=== PATIENT | male | born 1960 | race African-American/Black ===

== ENCOUNTER 2023-03-16 19:24 | Emergency (ER) | payer MEDICARE, BC ==
[~2023-03-16] VITALS: Ht 175.3 cm; Wt 107.9 kg
[2023-03-16 19:39] VITALS: BP 177/100; PULSE 114; RESP 14; TEMP 98.3; O2SAT 99
[2023-03-16 21:00] LABS: ALANINE AMINOTRANSFERASE 19 IU/L (10-49); ALBUMIN 4.3 g/dL (3.2-4.8); ASPARTATE AMINOTRANSFERASE 17 IU/L (<34); BILIRUBIN TOTAL 0.3 mg/dL (0.1-1.0); CALCIUM 9.6 mg/dL (8.7-10.4); CARBON DIOXIDE 28 mEq/L (21-32); CHLORIDE 103 mEq/L (98-107); GLUCOSE 188 mg/dL (70-105); POTASSIUM 3.9 mEq/L (3.5-5.1); SODIUM 137 mEq/L (136-145); UREA NITROGEN BLOOD 10 mg/dL (9-23)
[2023-03-16 21:01] LABS: BASOPHILS % 0.8 % (0.0-2.0); EOSINOPHILS % 3.8 % (0.0-5.0); HEMATOCRIT. 38.8 % (42.0-52.0); HEMOGLOBIN. 12.9 g/dL (14.0-18.0); LYMPHOCYTES % 49.4 % (20.0-50.0); MEAN CORPUSCULAR HEMOGLOBIN 30.3 pg (28.0-32.0); MEAN CORPUSCULAR HGB CONC 33.4 g/dL (31.0-37.0); MEAN CORPUSCULAR VOLUME 90.9 fL (80.0-94.0); MEAN PLATELET VOLUME 8.8 fl (7.4-10.4); MONOCYTES % 9.1 % (2.0-8.0); NEUTROPHILS % 36.9 % (40.0-76.0); PLATELET 256 x1000/uL (130-400); RED BLOOD CELL COUNT 4.27 mill/uL (4.7-6.1); RED CELL DISTRIBUTION WIDTH 13.6 % (11.6-14.6); WHITE BLOOD COUNT 6.3 x1000/uL (4.5-11.0)
[2023-03-16 21:11] LABS: PARTIAL THROMBOPLASTIN TIME 30.9 sec (23.4-31.0)
== END 2023-03-17 03:52 | disposition left against medical advice (07) ==
LOC: ER 19:24
DX: I10 Essential (primary) hypertension (principal); Z53.21 Procedure and treatment not carried out due to patient leaving prior to being seen by health care provider
CPT/HCPCS: 36415; 71045; 80053; 85025; 93005; 99281

== ENCOUNTER 2024-09-26 03:01 | Inpatient (IN) | payer MEDICARE, MEDICAID ==
[~2024-09-26] VITALS: Ht 180.3 cm; Wt 120.3 kg
[2024-09-26] VITALS (83 sets, daily range): BP systolic 70–136; BP diastolic 44–106; PULSE 63–94; RESP 14–31; TEMP 34.6944–37.2; O2SAT 97–100
[2024-09-26] MEDS ORDERED: ACETAMINOPHEN 1000MG/100ML 100 ML IV ONE (03:30)
[2024-09-26] MEDS: SODIUM CHLORIDE 0.9% (SEPSIS BOLUS) IV ONE (03:49)
[2024-09-26 04:31] LABS: BASOPHILS % 0.2 % (0.0-2.0); EOSINOPHILS % 0.5 % (0.0-5.0); HEMATOCRIT. 35.7 % (42.0-52.0); HEMOGLOBIN. 12.2 g/dL (14.0-18.0); LYMPHOCYTES % 10.0 % (20.0-50.0); MEAN PLATELET VOLUME 9.0 fl (7.4-10.4); MONOCYTES % 0.5 % (2.0-8.0); NEUTROPHILS % 88.8 % (40.0-76.0); PLATELET 128 x1000/uL (130-400); RED BLOOD CELL COUNT 4.04 mill/uL (4.7-6.1); RED CELL DISTRIBUTION WIDTH 16.4 % (11.6-14.6)
[2024-09-26 04:46] LABS: CREATININE 1.3 mg/dL (0.6-1.3)
[2024-09-26 04:47] LABS: ETHANOL BLOOD < 10 mg/dL (<10); UREA NITROGEN BLOOD 17 mg/dL (9-23)
[2024-09-26 04:48] LABS: ASPARTATE AMINOTRANSFERASE 19 IU/L (<34)
[2024-09-26 04:49] LABS: BILIRUBIN DIRECT 0.5 mg/dL (<=3.0); BILIRUBIN TOTAL 1.1 mg/dL (0.1-1.0); PROTEIN TOTAL 7.0 g/dL (6.0-8.3)
[2024-09-26] MEDS: PIPERACILLIN/TAZO 3.375G/50ML 50 ML IV NR (04:51)
[2024-09-26 04:59] LABS: TROPONIN I HIGH SENSITIVITY < 4 ng/L (3.0-53)
[2024-09-26] MEDS: ACETAMINOPHEN 325MG TABLET PO ONE (05:12)
[2024-09-26] MEDS: VANCOMYCIN 1G PREMIX 200 ML IV NR (05:17)
[2024-09-26 06:24] LABS: CLARITY URINE CLEAR (CLEAR); COLOR URINE YELLOW (YELLOW); GLUCOSE URINE NEGATIVE (NEGATIVE); KETONES URINE NEGATIVE (NEGATIVE); LEUKOCYTE ESTERASE URINE 2+ (NEGATIVE); NITRITE URINE NEGATIVE (NEGATIVE); OCCULT BLOOD URINE 2+ (NEGATIVE); PH URINE 7.5 (4.5-8.0); PROTEIN URINE 1+ (NEGATIVE); SPECIFIC GRAVITY URINE 1.013 (1.005-1.030); UROBILINOGEN URINE 0.2 E.U./dL (0.2-1.0)
[2024-09-26 06:48] LABS: INR 1.2
[2024-09-26 06:50] LABS: *AMPHETAMINES SCREEN URINE NEGATIVE (NEGATIVE); *BARBITURATES SCREEN URINE NEGATIVE (NEGATIVE); *BENZODIAZEPINES SCREEN URINE NEGATIVE (NEGATIVE); *COCAINE SCREEN URINE NEGATIVE (NEGATIVE); CANNABINOID URINE SCREEN NEGATIVE (NEGATIVE); ECSTASY MDMA SCREEN URINE NEGATIVE (NEGATIVE); METHADONE URINE SCREEN NEGATIVE (NEGATIVE); OPIATES URINE SCREEN NEGATIVE (NEGATIVE); PHENCYCLIDINE URINE SCREEN NEGATIVE (NEGATIVE)
[2024-09-26] MEDS: IPRATROPIUM/ALBUTEROL 0.5-3(2.5)MG/3ML NEB HHN SCH ×2 (07:42→12:00)
[2024-09-26] MEDS: PHENYLEPHRINE 50MG/250ML PMX 250 ML IV PRN (08:51)
[2024-09-26] MEDS ORDERED: ENOXAPARIN 100MG/ML SYR SUBCUT SCH (09:00)
[2024-09-26] MEDS: PROPOFOL 10MG/ML 100ML 100 ML IV PRN (09:04)
[2024-09-26 09:06] LABS: SQUAMOUS EPITHELIAL CELL URINE FEW /lpf (RARE/1+)
[2024-09-26 09:09] LABS: BACTERIA URINE 2+
[2024-09-26 09:10] LABS: HYALINE CASTS URINE 0-5 /lpf
[2024-09-26 09:14] LABS: RBC URINE 50-100 /hpf (0-2); WBC URINE 50-100 /hpf (0-2)
[2024-09-26] MEDS ORDERED: DOCUSATE SODIUM 100MG CAPSULE PO PRN (09:15)
[2024-09-26] MEDS ORDERED: MAGNESIUM/ALUMINUM HYDROXIDE/SIMETHICONE 30ML UDC PO PRN (09:15)
[2024-09-26] MEDS ORDERED: ONDANSETRON HCL 4MG/2ML INJ IV PRN (09:15)
[2024-09-26] MEDS ORDERED: ACETAMINOPHEN 325MG TABLET PO PRN (09:15)
[2024-09-26 10:55] LABS: BG BASE EXCESS -3.6 mmol/L (-2.0-3.0); BG CARBOXYHEMOGLOBIN 0.7 % (0.5-1.5); BG DEOXYHEMOGLOBIN 3.4 % (0.0-5.0); BG FRACTION INSPIRED OXYGEN 100; BG HCO3 ACT 19.5 mmol/L (21.0-28.0); BG METHEMOGLOBIN 0.0 % (0.5-1.5); BG OXYGEN SATURATION 96.6 % (94.0-98.0); BG OXYHEMOGLOBIN 95.9 % (94.0-98.0); BG PCO2 29.5 mmHg (35.0-48.0); BG PEEP (cmH2O) 8.0 cmH2O; BG PH 7.439 (7.350-7.450); BG PO2 87.4 mmHg (83.0-108.0); BG SAMPLE SITE RIGHT RADIAL; BG TIDAL VOLUME(mL) 500.0 mL; BG TOTAL HEMOGLOBIN 11.9 g/dL (13.5-17.5); BG VENT MODE VENT - AC; BG VENT RATE 18.0 set
[2024-09-26] MEDS ORDERED: DEXTROSE 50% WATER 50ML SYRINGE IV PRN (11:00)
[2024-09-26 11:01] LABS: TROPONIN I HIGH SENSITIVITY 13 ng/L (3.0-53)
[2024-09-26] MEDS: NOREPINEPHRINE 8MG/250ML PMX 250 ML IV PRN (11:03)
[2024-09-26 11:16] LABS: LDL CHOLESTEROL 31.0 mg/dL (5-100); TRIGLYCERIDE 66.0 mg/dL (0-150)
[2024-09-26 11:21] LABS: T4 FREE 1.04 ng/dL (0.89-1.76)
[2024-09-26] MEDS: FUROSEMIDE 40MG/4ML VIAL IVP SCH (11:25)
[2024-09-26] MEDS: METHYLPREDNISOLONE SOD SUCC 125MG/2ML (ACT-O-VIAL) IV SCH (11:26)
[2024-09-26] MEDS: INSULIN LISPRO 100 UNITS/ML SUBCUT SCH (12:00)
[2024-09-26 12:12] LABS: FOLIC ACID (FOLATE) SERUM > 20.00 ng/mL (>5.38); VITAMIN B12 SERUM 428 pg/mL (211-911)
[2024-09-26] MEDS: BLOOD SUGAR DIAGNOSTIC STRIP TEST SCH (12:29)
[2024-09-26 12:39] LABS: PHOSPHORUS 2.3 mg/dL (2.5-4.9)
[2024-09-26] MEDS ORDERED: ETOMIDATE 2MG/ML 10ML VIAL IV ONE (13:21)
[2024-09-26] MEDS: PIPERACILLIN/TAZO 3.375G/50ML 50 ML IV SCH (13:46)
[2024-09-26] MEDS: ASPIRIN 81MG TABLET PO SCH (13:46)
[2024-09-26 14:17] LABS: INFLUENZA TYPE A Presumptive Negative (Pres. Neg.); INFLUENZA TYPE B Presumptive Negative (Pres. Neg.)
[2024-09-26 14:18] LABS: RESPIRATORY SYNCYTIAL VIRUS Not Detected (Not Detectd)
[2024-09-26] MEDS: NOREPINEPHRINE 32 MG in DEXT 5% WATER 218 ML IV PRN (14:44)
[2024-09-26] MEDS: PHENYLEPHRINE 100 MG in DEXT 5% WATER 240 ML IV PRN (14:45)
[2024-09-26] MEDS: VANCOMYCIN 1.25GM/250ML IV SCH (15:26)
[2024-09-26 15:43] LABS: CREATINE KINASE MB FRACTION 2.3 ng/mL (0.5-3.6)
[2024-09-26 15:44] LABS: TROPONIN I HIGH SENSITIVITY 22.0 ng/L (3.0-53)
[2024-09-26] MEDS: METHYLPREDNISOLONE SOD SUCC 40MG/ML (ACT-O-VIAL) IV SCH (16:58)
[2024-09-26] MEDS: IOHEXOL-350 100 ML BOTTLE ONE ×2 (16:59→23:25)
[2024-09-26] MEDS: LIDOCAINE HCL 1% 10 MG/ML 10ML VIAL ONE (16:59)
[2024-09-26] MEDS: MAGNESIUM 2 G PREMIX 50 ML IV NR (17:49)
[2024-09-26] MEDS: ENOXAPARIN 30MG/0.3ML SYR SUBCUT SCH (17:50)
[2024-09-26] MEDS: SODIUM PHOSPHATE 15 MMOL in DEXT 5% WATER 245 ML IV NR (17:50)
[2024-09-26 18:43] LABS: INFLUENZA TYPE A Presumptive Negative (Pres. Neg.)
[2024-09-26 18:44] LABS: INFLUENZA TYPE B Presumptive Negative (Pres. Neg.); RESPIRATORY SYNCYTIAL VIRUS Not Detected (Not Detectd)
[2024-09-26 18:55] LABS: HEMATOCRIT. 36.0 % (42.0-52.0); HEMOGLOBIN. 12.3 g/dL (14.0-18.0); MEAN PLATELET VOLUME 9.5 fl (7.4-10.4); PLATELET 132 x1000/uL (130-400); RED BLOOD CELL COUNT 4.06 mill/uL (4.7-6.1); RED CELL DISTRIBUTION WIDTH 16.4 % (11.6-14.6)
[2024-09-26] MEDS ORDERED: AMLO10TA80 MT (18:58)
[2024-09-26] MEDS ORDERED: ASPI-867 MT (18:58)
[2024-09-26] MEDS ORDERED: METF-1150 MT (18:58)
[2024-09-26] MEDS ORDERED: EMPA10TA MT (18:58)
[2024-09-26] MEDS ORDERED: MIRA50TA MT (18:58)
[2024-09-26] MEDS ORDERED: TICA90TA MT (18:58)
[2024-09-26] MEDS ORDERED: GLIP10TA2 PO (18:58)
[2024-09-26] MEDS ORDERED: TAMS-54 PO (18:58)
[2024-09-26] MEDS ORDERED: COR25 MT (18:58)
[2024-09-26] MEDS ORDERED: OMEP40CA20 MT (18:58)
[2024-09-26] MEDS ORDERED: FINA1TAB14 MT (18:58)
[2024-09-26] MEDS ORDERED: ISOS60TA76 MT (18:58)
[2024-09-26] MEDS ORDERED: HYDR50TA40 MT (18:58)
[2024-09-26] MEDS ORDERED: ATOR-2 MT (18:58)
[2024-09-26] MEDS ORDERED: GABA300C PO (18:58)
[2024-09-26] MEDS ORDERED: SALM50DI INH (18:58)
[2024-09-26] MEDS ORDERED: VALS320T16 MT (18:58)
[2024-09-26 19:55] LABS: BAND% 17.0 % (1.0-6.0); LYMPHOCYTES % MANUAL 5.0 % (20.0-50.0); MONOCYTES % MANUAL 3.0 % (2.0-8.0); NEUTROPHILS % MANUAL 75.0 % (45.0-75.0); PLATELET ESTIMATE NORMAL
[2024-09-26 20:17] LABS: CREATININE 1.6 mg/dL (0.6-1.3); UREA NITROGEN BLOOD 21 mg/dL (9-23)
[2024-09-26 20:19] LABS: ASPARTATE AMINOTRANSFERASE 49 IU/L (<34); BILIRUBIN TOTAL 2.0 mg/dL (0.1-1.0); PROTEIN TOTAL 6.5 g/dL (6.0-8.3)
[2024-09-26] MEDS ORDERED: DEXMEDETOMIDINE 400 MCG/100 ML 100 ML IV PRN (20:30)
[2024-09-26] MEDS: ATORVASTATIN CALCIUM 40MG TABLET PO SCH (20:59)
[2024-09-26] MEDS: FENTANYL 2500MCG/250ML PMX 250 ML IV SCH (22:15)
[2024-09-27] VITALS (97 sets, daily range): BP systolic 79–132; BP diastolic 52–82; PULSE 57–83; RESP 12–26; TEMP 36.1–36.7; O2SAT 69–99
[2024-09-27 01:14] LABS: CREATINE KINASE MB FRACTION 2.9 ng/mL (0.5-3.6)
[2024-09-27 01:15] LABS: TROPONIN I HIGH SENSITIVITY 35 ng/L (3.0-53)
[2024-09-27 01:16] LABS: PHOSPHORUS 4.9 mg/dL (2.5-4.9)
[2024-09-27 05:42] LABS: HEMATOCRIT. 36.2 % (42.0-52.0); HEMOGLOBIN. 12.0 g/dL (14.0-18.0); MEAN PLATELET VOLUME 9.9 fl (7.4-10.4); PLATELET 116 x1000/uL (130-400); RED BLOOD CELL COUNT 4.09 mill/uL (4.7-6.1); RED CELL DISTRIBUTION WIDTH 16.4 % (11.6-14.6)
[2024-09-27 05:55] LABS: CREATINE KINASE MB FRACTION 2.5 ng/mL (0.5-3.6); TRIGLYCERIDE 101 mg/dL (0-150); UREA NITROGEN BLOOD 21 mg/dL (9-23)
[2024-09-27 05:56] LABS: CREATININE 1.5 mg/dL (0.6-1.3); TROPONIN I HIGH SENSITIVITY 38.0 ng/L (3.0-53)
[2024-09-27 05:57] LABS: LDL CHOLESTEROL 17 mg/dL (5-100)
[2024-09-27 05:58] LABS: ASPARTATE AMINOTRANSFERASE 43 IU/L (<34); BILIRUBIN DIRECT 0.8 mg/dL (<=3.0); BILIRUBIN TOTAL 1.4 mg/dL (0.1-1.0)
[2024-09-27 05:59] LABS: PROTEIN TOTAL 6.5 g/dL (6.0-8.3); T4 FREE 1.38 ng/dL (0.89-1.76)
[2024-09-27 07:30] LABS: BAND% 31.0 % (1.0-6.0); LYMPHOCYTES % MANUAL 8.0 % (20.0-50.0); METAMYELOCYTES % 1.0 % (0-0); MONOCYTES % MANUAL 9.0 % (2.0-8.0); NEUTROPHILS % MANUAL 51.0 % (45.0-75.0); PLATELET ESTIMATE SLIGHTLY DECREASED
[2024-09-27 09:36] LABS: BG BASE EXCESS -4.2 mmol/L (-2.0-3.0); BG CARBOXYHEMOGLOBIN 0.0 % (0.5-1.5); BG DEOXYHEMOGLOBIN 4.3 % (0.0-5.0); BG FRACTION INSPIRED OXYGEN 40; BG HCO3 ACT 19.8 mmol/L (21.0-28.0); BG METHEMOGLOBIN 0.3 % (0.5-1.5); BG OXYGEN SATURATION 95.7 % (94.0-98.0); BG OXYHEMOGLOBIN 95.4 % (94.0-98.0); BG PCO2 33.2 mmHg (35.0-48.0); BG PEEP (cmH2O) 10.0 cmH2O; BG PH 7.394 (7.350-7.450); BG PO2 77.5 mmHg (83.0-108.0); BG SAMPLE SITE RIGHT RADIAL; BG TIDAL VOLUME(mL) 500.0 mL; BG TOTAL HEMOGLOBIN 12.6 g/dL (13.5-17.5); BG VENT MODE VENT - AC; BG VENT RATE 14.0 set
[2024-09-27] MEDS: ASPIRIN 81MG TABLET PO SCH (09:43)
[2024-09-27] MEDS: PANTOPRAZOLE SODIUM 40 MG/VIAL IV SCH (09:43)
[2024-09-27] MEDS ORDERED: FENTANYL 2500MCG/250ML PMX 250 ML IV PRN (11:45)
[2024-09-27] MEDS: PROPOFOL 10MG/ML 100ML 100 ML IV PRN (11:59)
[2024-09-27] MEDS: METHYLPREDNISOLONE SOD SUCC 40MG/ML (ACT-O-VIAL) IV SCH (14:23)
[2024-09-27] MEDS: AZITHROMYCIN 500MG/250ML 250 ML IV SCH (14:24)
[2024-09-27] MEDS: FUROSEMIDE 40MG/4ML VIAL IVP SCH (21:01)
[2024-09-28] VITALS (104 sets, daily range): BP systolic 78–146; BP diastolic 51–79; PULSE 54–95; RESP 8–29; TEMP 36.3–37; O2SAT 91–100
[2024-09-28 05:44] LABS: HEMATOCRIT. 34.4 % (42.0-52.0); HEMOGLOBIN. 11.7 g/dL (14.0-18.0); MEAN PLATELET VOLUME 10.2 fl (7.4-10.4); PLATELET 110 x1000/uL (130-400); RED BLOOD CELL COUNT 3.92 mill/uL (4.7-6.1); RED CELL DISTRIBUTION WIDTH 16.6 % (11.6-14.6)
[2024-09-28 05:53] LABS: CREATININE 1.9 mg/dL (0.6-1.3); TRIGLYCERIDE 828.0 mg/dL (0-150)
[2024-09-28 05:54] LABS: UREA NITROGEN BLOOD 34.0 mg/dL (9-23)
[2024-09-28] MEDS: CLONIDINE 0.1MG TABLET PO SCH (07:00)
[2024-09-28] MEDS ORDERED: DEXMEDETOMIDINE 400 MCG/100 ML 100 ML IV PRN (07:00)
[2024-09-28] MEDS: DEXMEDETOMIDINE 400 MCG/100 ML 100 ML IV PRN (07:16)
[2024-09-28 07:29] LABS: BAND% 55.0 % (1.0-6.0); LYMPHOCYTES % MANUAL 6.0 % (20.0-50.0); METAMYELOCYTES % 2.0 % (0-0); MONOCYTES % MANUAL 5.0 % (2.0-8.0); MYELOCYTES % 2.0 % (0-0); NEUTROPHILS % MANUAL 30.0 % (45.0-75.0); PLATELET ESTIMATE SLIGHTLY DECREASED
[2024-09-28 08:07] LABS: BG BASE EXCESS -2.5 mmol/L (-2.0-3.0); BG CARBOXYHEMOGLOBIN 0.3 % (0.5-1.5); BG DEOXYHEMOGLOBIN 5.5 % (0.0-5.0); BG FRACTION INSPIRED OXYGEN 40; BG HCO3 ACT 22.0 mmol/L (21.0-28.0); BG METHEMOGLOBIN 0.3 % (0.5-1.5); BG OXYGEN SATURATION 94.5 % (94.0-98.0); BG OXYHEMOGLOBIN 93.9 % (94.0-98.0); BG PCO2 37.5 mmHg (35.0-48.0); BG PEEP (cmH2O) 8.0 cmH2O; BG PH 7.387 (7.350-7.450); BG PO2 72.1 mmHg (83.0-108.0); BG SAMPLE SITE RIGHT RADIAL; BG TIDAL VOLUME(mL) 500.0 mL; BG TOTAL HEMOGLOBIN 12.8 g/dL (13.5-17.5); BG VENT MODE VENT - AC; BG VENT RATE 14.0 set
[2024-09-28] MEDS: MIDAZOLAM 100MG/100ML PMX 100 ML IV PRN (10:01)
[2024-09-28] MEDS: CEFEPIME 2GM/100ML 100 ML IV SCH (16:56)
[2024-09-28 20:27] LABS: PHOSPHORUS 4.0 mg/dL (2.5-4.9)
[2024-09-28] MEDS ORDERED: CEFEPIME 1,000 MG in DEXT 5% WATER 100 ML IV SCH (21:00)
[2024-09-28] MEDS: METRONIDAZOLE 500MG TABLET PO SCH (21:00)
[2024-09-29] VITALS (107 sets, daily range): BP systolic 100–173; BP diastolic 60–103; PULSE 59–101; RESP 10–24; TEMP 36.6–37; O2SAT 95–100
[2024-09-29] MEDS: FENTANYL CITRATE 2,500 MCG in SODIUM CHLORIDE 0.9% 200 ML IV PRN (03:49)
[2024-09-29 05:22] LABS: PLATELET 103 x1000/uL (130-400); RED BLOOD CELL COUNT 3.85 mill/uL (4.7-6.1); RED CELL DISTRIBUTION WIDTH 16.7 % (11.6-14.6)
[2024-09-29 05:36] LABS: CREATININE 1.6 mg/dL (0.6-1.3); UREA NITROGEN BLOOD 45.0 mg/dL (9-23)
[2024-09-29] MEDS ORDERED: VANCOMYCIN 1.5GM PMX (XELLIA) 300 ML IV SCH (06:00)
[2024-09-29] MEDS: SODIUM CHLORIDE 0.9% 1,000 ML IV SCH (12:39)
[2024-09-29] MEDS ORDERED: DEXTROSE 50% WATER 50ML SYRINGE IV PRN (16:15)
[2024-09-29] MEDS: BLOOD SUGAR DIAGNOSTIC STRIP TEST SCH (16:30)
[2024-09-29] MEDS: INSULIN LISPRO 100 UNITS/ML SUBCUT SCH (18:08)
[2024-09-29] MEDS ORDERED: PRED15SO74 PO (20:08)
[2024-09-30] VITALS (101 sets, daily range): BP systolic 95–166; BP diastolic 51–99; PULSE 56–106; RESP 0–26; TEMP 36.6–37.2; O2SAT 90–100
[2024-09-30 04:35] LABS: PLATELET 117 x1000/uL (130-400); RED BLOOD CELL COUNT 4.01 mill/uL (4.7-6.1); RED CELL DISTRIBUTION WIDTH 16.6 % (11.6-14.6)
[2024-09-30 04:51] LABS: CREATININE 1.4 mg/dL (0.6-1.3); UREA NITROGEN BLOOD 45 mg/dL (9-23)
[2024-09-30] MEDS: KCL 20MEQ/100ML PREMIX 100 ML IV SCH (11:01)
[2024-09-30 12:29] LABS: HEMATOCRIT. 35.2 % (42.0-52.0); HEMOGLOBIN. 11.5 g/dL (14.0-18.0); MEAN PLATELET VOLUME 9.7 fl (7.4-10.4); PLATELET 117 x1000/uL (130-400); RED BLOOD CELL COUNT 4.01 mill/uL (4.7-6.1); RED CELL DISTRIBUTION WIDTH 16.6 % (11.6-14.6)
[2024-09-30 13:11] LABS: ALPHA FETOPROTEIN TUMOR MARKER < 1.8 ng/mL (0.0-8.4); CARCINOEMBRYONIC AG - SEND OUT 1.6 ng/mL (0.0-4.7)
[2024-09-30 14:04] LABS: BAND% 37.0 % (1.0-6.0); EOSINOPHILS % MANUAL 1.0 % (0.0-5.0); LYMPHOCYTES % MANUAL 4.0 % (20.0-50.0); METAMYELOCYTES % 9.0 % (0-0); MONOCYTES % MANUAL 3.0 % (2.0-8.0); NEUTROPHILS % MANUAL 46.0 % (45.0-75.0); PLATELET ESTIMATE SLIGHTLY DECREASED
[2024-10-01] VITALS (106 sets, daily range): BP systolic 101–173; BP diastolic 35–97; PULSE 56–106; RESP 0–19; TEMP 36.5–36.8; O2SAT 93–100
[2024-10-01] MEDS: FENTANYL 2500MCG/250ML PMX 250 ML IV PRN (05:35)
[2024-10-01 14:06] LABS: HEMATOCRIT. 39.5 % (42.0-52.0); HEMOGLOBIN. 12.6 g/dL (14.0-18.0); MEAN PLATELET VOLUME 11.2 fl (7.4-10.4); PLATELET 125 x1000/uL (130-400); RED BLOOD CELL COUNT 4.34 mill/uL (4.7-6.1); RED CELL DISTRIBUTION WIDTH 17.3 % (11.6-14.6)
[2024-10-01 14:33] LABS: BAND% 17.0 % (1.0-6.0); EOSINOPHILS % MANUAL 1.0 % (0.0-5.0); LYMPHOCYTES % MANUAL 20.0 % (20.0-50.0); METAMYELOCYTES % 1.0 % (0-0); MONOCYTES % MANUAL 7.0 % (2.0-8.0); MYELOCYTES % 1.0 % (0-0); NEUTROPHILS % MANUAL 53.0 % (45.0-75.0); PLATELET ESTIMATE SLIGHTLY DECREASED
[2024-10-01 14:34] LABS: CREATININE 1.2 mg/dL (0.6-1.3); UREA NITROGEN BLOOD 33 mg/dL (9-23)
[2024-10-01] MEDS: CLONIDINE 0.1MG TABLET PO PRN (18:19)
[2024-10-02] VITALS (85 sets, daily range): BP systolic 117–183; BP diastolic 55–129; PULSE 68–107; RESP 10–22; TEMP 36.7–37.1; O2SAT 92–100
[2024-10-02 04:50] LABS: PLATELET 146 x1000/uL (130-400); RED BLOOD CELL COUNT 3.92 mill/uL (4.7-6.1); RED CELL DISTRIBUTION WIDTH 16.4 % (11.6-14.6)
[2024-10-02 05:03] LABS: CREATININE 1.0 mg/dL (0.6-1.3)
[2024-10-02 05:04] LABS: UREA NITROGEN BLOOD 35 mg/dL (9-23)
[2024-10-02] MEDS: IPRATROPIUM/ALBUTEROL 0.5-3(2.5)MG/3ML NEB HHN PRN (09:17)
[2024-10-02] MEDS: CEFEPIME 2GM/100ML 100 ML IV SCH (14:35)
[2024-10-02] MEDS: GUAIFENESIN 200MG/10ML SUGAR FREE UDC PO PRN (17:55)
[2024-10-02] MEDS: HYDRALAZINE 20MG/ML VIAL IV PRN (18:48)
[2024-10-02] MEDS: GLYCOPYRROLATE 0.2 MG/ML 2ML VIAL IV NR (21:26)
[2024-10-02] MEDS: ACETAMINOPHEN 325MG TABLET PO PRN (22:43)
[2024-10-02] MEDS: HYDRALAZINE HCL 50MG TABLET PO SCH (23:32)
[2024-10-03] VITALS (38 sets, daily range): BP systolic 136–171; BP diastolic 51–125; PULSE 67–112; RESP 14–22; TEMP 37.1–38.8; O2SAT 88–98
[2024-10-03 05:15] LABS: PLATELET 150 x1000/uL (130-400); RED BLOOD CELL COUNT 4.04 mill/uL (4.7-6.1); RED CELL DISTRIBUTION WIDTH 16.3 % (11.6-14.6)
[2024-10-03 05:51] LABS: CREATININE 0.9 mg/dL (0.6-1.3); UREA NITROGEN BLOOD 20 mg/dL (9-23)
[2024-10-04] VITALS (10 sets, daily range): BP systolic 118–173; BP diastolic 52–83; PULSE 70–111; RESP 17–26; TEMP 34.2–36.9; O2SAT 95–99
[2024-10-04] MEDS: CEFEPIME 2GM/100ML 100 ML IV SCH (00:30)
[2024-10-04] MEDS ORDERED: GUAIFENESIN-DM 200MG-20MG/10ML UDC PO PRN (13:30)
[2024-10-05] VITALS (7 sets, daily range): BP systolic 145–186; BP diastolic 76–88; PULSE 58–70; RESP 17–20; TEMP 36.3–37.1; O2SAT 95–100
[2024-10-05 11:14] LABS: HEMATOCRIT. 32.3 % (42.0-52.0); HEMOGLOBIN. 10.8 g/dL (14.0-18.0); MEAN PLATELET VOLUME 10.0 fl (7.4-10.4); PLATELET 185 x1000/uL (130-400); RED BLOOD CELL COUNT 3.71 mill/uL (4.7-6.1); RED CELL DISTRIBUTION WIDTH 15.7 % (11.6-14.6)
[2024-10-05 11:51] LABS: CREATININE 1.0 mg/dL (0.6-1.3); UREA NITROGEN BLOOD 17 mg/dL (9-23)
[2024-10-05] MEDS ORDERED: AMLODIPINE 5MG TABLET PO SCH (12:45)
[2024-10-05 13:56] LABS: BAND% 6.0 % (1.0-6.0); EOSINOPHILS % MANUAL 1.0 % (0.0-5.0); LYMPHOCYTES % MANUAL 11.0 % (20.0-50.0); MONOCYTES % MANUAL 7.0 % (2.0-8.0); NEUTROPHILS % MANUAL 75.0 % (45.0-75.0)
[2024-10-05 13:57] LABS: PLATELET ESTIMATE NORMAL
[2024-10-05] MEDS: AMLODIPINE 5MG TABLET PO SCH (20:57)
[2024-10-06] VITALS: BP 170/56; PULSE 56; RESP 17; TEMP 36.4; O2SAT 96
[2024-10-06 04:00] VITALS: BP 119/76; PULSE 68; RESP 17; TEMP 36.6; O2SAT 97
[2024-10-06 08:00] VITALS: BP 161/79; PULSE 67; RESP 18; TEMP 36.6; O2SAT 98
[2024-10-06 12:00] VITALS: BP 151/72; PULSE 63; RESP 20; TEMP 36.9; O2SAT 100
[2024-10-06] MEDS: POTASSIUM CHLORIDE 20MEQ TABLET SR PO SCH (15:00)
[2024-10-06] MEDS: HYDRALAZINE HCL 100MG TABLET PO SCH (15:39)
[2024-10-06 16:52] VITALS: BP 161/61; PULSE 67; RESP 20; TEMP 97.6
[2024-10-06] MEDS ORDERED: METFORMIN HCL 500MG TABLET PO SCH (17:15)
== END 2024-10-06 17:00 | disposition home health service (06) | DRG 870 ==
LOC: ER 03:01 → 6WST 05:14 → EDBEDREQ 05:39 → EDBEDREQTM 05:39 → ENRESERV 06:46 → MICUNO 08:26 → 5WST 10-03 15:15
PROVIDERS: ADMIT Internal Medicine; ATTEND Internal Medicine
PROC: 05HY33Z Insertion of Infusion Device into Upper Vein, Percutaneous Approach (ICD-10-PCS; principal; 2024-09-26)
PROC: 5A1955Z Respiratory Ventilation, Greater than 96 Consecutive Hours (ICD-10-PCS; 2024-09-26)
PROC: B54MZZA Ultrasonography of Right Upper Extremity Veins, Guidance (ICD-10-PCS; 2024-09-26)
PROC: 0BH17EZ Insertion of Endotracheal Airway into Trachea, Via Natural or Artificial Opening (ICD-10-PCS; 2024-09-26)
DX: A41.59 Other Gram-negative sepsis (principal); G92.8 Other toxic encephalopathy; J18.9 Pneumonia, unspecified organism; J96.01 Acute respiratory failure with hypoxia; R65.21 Severe sepsis with septic shock; N39.0 Urinary tract infection, site not specified; N17.9 Acute kidney failure, unspecified; E87.20 Acidosis, unspecified; E66.2 Morbid (severe) obesity with alveolar hypoventilation; E87.29 Other acidosis; G72.81 Critical illness myopathy; I42.9 Cardiomyopathy, unspecified; I69.354 Hemiplegia and hemiparesis following cerebral infarction affecting left non-dominant side; M62.82 Rhabdomyolysis; I50.22 Chronic systolic (congestive) heart failure; Z20.822 Contact with and (suspected) exposure to COVID-19; D64.9 Anemia, unspecified; D69.6 Thrombocytopenia, unspecified; R74.8 Abnormal levels of other serum enzymes; I11.0 Hypertensive heart disease with heart failure; I25.10 Atherosclerotic heart disease of native coronary artery without angina pectoris; E78.1 Pure hyperglyceridemia; E11.9 Type 2 diabetes mellitus without complications; E83.42 Hypomagnesemia; T38.0X5A Adverse effect of glucocorticoids and synthetic analogues, initial encounter; B96.89 Other specified bacterial agents as the cause of diseases classified elsewhere; Z95.5 Presence of coronary angioplasty implant and graft; E11.40 Type 2 diabetes mellitus with diabetic neuropathy, unspecified; E66.812 Obesity, class 2; G89.29 Other chronic pain; E80.6 Other disorders of bilirubin metabolism; R13.10 Dysphagia, unspecified; Z68.37 Body mass index [BMI] 37.0-37.9, adult; Y92.89 Other specified places as the place of occurrence of the external cause
CPT/HCPCS: 31500; 31720; 36415; 36573; 36600; 71045; 71275; 74018; 80048; 80053; 80061; 80076; 80202; 80305; 80320; 81003; 82010; 82105; 82375; 82378; 82550; 82553; 82607; 82728; 82746; 82805; 82962; 83036; 83540; 83550; 83605; 83735; 83880; 84100; 84145; 84153; 84439; 84443; 84478; 84484; 85025; 85027; 85044; 85379; 87070; 87077; 87186; 87420; 87426; 87804; 92610; 93005; 93306; 93970; 94002; 94003; 94070; 94640; 94660; 94664; 94760; 97110; 97116; 97162; 97166; 97530; 97535; 98960; 99291; A4606; C1725; J0360; J0456; J0692; J1650; J1815; J1938; J2003; J2250; J2371; J2470; J2543; J2704; J2919; J3010; J3373; J3475; J3480; J3490; J7030; J7050; J7060; Q9967; A5200; G0480; J0131